=== PATIENT | female | born 1985 | race Caucasian/White ===

== ENCOUNTER → 2022-08-09 06:46 | Outpatient (CLI) | payer BC, SELFPAY | PROVIDERS: PCP Family Medicine; Visit Provider Family Medicine | DX: R10.9 Unspecified abdominal pain (principal) | CPT/HCPCS: 87086 ==

== ENCOUNTER → 2022-08-10 14:03 | Outpatient (CLI) | payer BC, SELFPAY | LOC: LAB 14:03 | PROVIDERS: PCP Family Medicine; Visit Provider Obstetrics & Gynecology | DX: Z32.01 Encounter for pregnancy test, result positive (principal) | CPT/HCPCS: 36415; 84702 ==

== ENCOUNTER → 2022-08-12 15:27 | Outpatient (CLI) | payer BC, SELFPAY ==
[2022-08-14 10:26] LABS: Progesterone 8.3 ng/mL (.)
== END ==
LOC: LAB 15:27
PROVIDERS: PCP Family Medicine; Visit Provider Obstetrics & Gynecology
DX: O20.9 Hemorrhage in early pregnancy, unspecified (principal)
CPT/HCPCS: 36415; 84144; 86900; 86901

== ENCOUNTER → 2022-08-24 09:21 | Outpatient (CLI) | payer BC, SELFPAY ==
[2022-08-24 10:03] LABS: Basophils # 0.1 K/mm3 (0-0.2); Basophils % 0.5 % (0.1-2.0); Eosinophils % 0.3 % (0.1-12.0); Hematocrit 40.8 % (37.0-47.0); Hemoglobin 13.6 g/dL (12.2-16.2); Lymphocytes # 1.3 K/mm3 (0.7-4.5); Lymphocytes % 14.2 % (10-50); Mean Corpuscular HGB Conc 33.3 g/dL (31.8-35.4); Mean Corpuscular Hemoglobin 30.4 pg (27.0-31.2); Mean Corpuscular Volume 91.4 fl (81-99); Monocytes # 0.3 K/mm3 (0.1-1.0); Monocytes % 3.9 % (1.7-9.3); Neutrophils # 7.1 K/mm3 (1.8-7.8); Platelet Count 263 K/mm3 (142-424); Red Blood Count 4.47 M/mm3 (4.20-5.40); Red Cell Distribution Width 13.3 % (11.5-17.5); White Blood Count 8.8 K/mm3 (4.8-10.8)
[2022-08-24 20:21] LABS: Amphetamine/Metha Screen,Urine Negative ng/ml (<1000); Barbiturates Screen,Urine Negative ng/ml (<200); Benzodiazepines Screen,Urine Negative ng/ml (<200); Cannabinoid Screen,Urine Negative ng/ml (<50); Cocaine Screen,Urine Negative ng/ml (<300); Methadone Screen,Urine Negative ng/ml (<300); Opiate Screen,Urine Negative ng/ml (<300); Phencyclidine Screen,Urine Negative ng/ml (<25)
[2022-08-25 08:18] LABS: Rubella Antibodies, IgG 1.78 index (Immune >0.99)
[2022-08-25 09:14] LABS: HIV Screen 4th Generation wRfx Non Reactive (Non Reactive)
[2022-08-25 10:41] LABS: Progesterone 10.6 ng/mL (.); Rapid Plasma Reagin Ab Titer Non Reactive (NonRea<1:1)
[2022-08-27 03:37] LABS: Neisseria gonorrhoeae, NAA Negative (Negative)
[2022-08-29 16:31] LABS: Hepatitis B Surface Antigen NEGATIVE; Hepatitis C Antibody NON REACTIVE
== END ==
LOC: LAB 09:21
PROVIDERS: PCP Family Medicine; Visit Provider Obstetrics & Gynecology
DX: Z34.90 Encounter for supervision of normal pregnancy, unspecified, unspecified trimester (principal)
CPT/HCPCS: 36415; 80305; 84144; 85025; 86593; 86703; 86762; 87086; 87088; 87186; 87340; 87380; 87491; 87591; G0432

== ENCOUNTER 2022-08-26 17:49 | Emergency (ER) | payer BC, SELFPAY ==
[2022-08-26 17:51] VITALS: BP 163/91; PULSE 66; RESP 18; TEMP 36.8; O2SAT 100; BMI 40.6
--- NOTE | 2022-08-26 18:09 | US_ITS ---
PROCEDURE INFORMATION: Exam: US , Transvaginal Exam date and time: 08/26/2022 7:08 PM Age: 37 years old Clinical indication: Lmp or gestational age (in weeks): 9w5d; Antepartum complications; ; Patient HX: Started bleeding today; Additional info: Vaginal bleeding, TECHNIQUE: Imaging protocol: Real-time transvaginal obstetrical ultrasound of the maternal pelvis with image documentation. Transvaginal imaging was used for better evaluation of the fetus, adnexa, and/or cervix. COMPARISON: No relevant prior studies available. FINDINGS: Gestation: Single intrauterine gestation. Yolk sac is visualized. heart rate: Heart rate of 158 bpm. Placenta: Crescentic subchorionic hypoechoic collection which is not measured. BIOMETRY: Gestational age (AUA): Gestational age of 9 weeks and 5 days. Home[place]-Lyndora-Rump length (CRL): Home[place]-Lyndora-rump length of 27.9 mm. MATERNAL: Uterus: Rounded isoechoic uterine lesion measuring 2.6 x 2.8 x 1.9 cm with vascular flow. Right ovary/adnexa: Right ovary is normal. Left ovary/adnexa: Left ovary is normal. IMPRESSION: 1. Single viable intrauterine gestation. 2. Probable small subchorionic hemorrhage. 3. Probable fibroid uterus.
[2022-08-26 18:30] LABS: Microscopic, Urine URINE MICROSCOPIC (MICROSCOPIC)
--- NOTE | 2022-08-26 18:30 | PC.NURSE ---
RADIOLOGY NOTIFIED OF US ORDER
[2022-08-26 18:33] LABS: Appearance,Urine SL CLOUDY (Clear); Bilirubin,Urine Negative (Negative); Blood, Urine 3+ (Negative); Color,Urine YELLOW (Yellow); Glucose,Urine (UA) Negative (Negative); Ketones,Urine Negative (Negative); Leukocyte Esterase,Urine Negative (Negative); Nitrate,Urine Negative (Negative); Protein,Urine 1+ (Negative)
[2022-08-26 18:49] LABS: Basophils # 0.1 K/mm3 (0-0.2); Basophils % 0.8 % (0.1-2.0); Eosinophils # 0.1 K/mm3 (0.0-0.4); Eosinophils % 0.5 % (0.1-12.0); Hematocrit 37.8 % (37.0-47.0); Hemoglobin 13.3 g/dL (12.2-16.2); Lymphocytes # 1.9 K/mm3 (0.7-4.5); Lymphocytes % 18.7 % (10-50); Mean Corpuscular HGB Conc 35.1 g/dL (31.8-35.4); Mean Corpuscular Hemoglobin 31.4 pg (27.0-31.2); Mean Corpuscular Volume 89.6 fl (81-99); Mean Platelet Volume 8.8 fl (7.4-10.4); Monocytes # 0.5 K/mm3 (0.1-1.0); Monocytes % 4.5 % (1.7-9.3); Neutrophils # 7.6 K/mm3 (1.8-7.8); Neutrophils % 75.6 % (37.0-80.0); Platelet Count 260 K/mm3 (142-424); Red Blood Count 4.22 M/mm3 (4.20-5.40); Red Cell Distribution Width 13.2 % (11.5-17.5)
[2022-08-26 18:53] LABS: RBC,Urine 20-50 #/hpf (0-3); WBC,Urine Occasional #/hpf (0-3)
--- NOTE | 2022-08-26 19:03 | PC.NURSE ---
PT TO US AT THIS TIME
--- NOTE | 2022-08-26 19:44 | HMH.EDGENADL ---
Discharge Plan Disposition Patient Disposition: Home, Self-Care Condition: Good Prescriptions Prescriptions: New promethazine 25 mg tablet 25 mg PO Q6H PRN (Reason: nausea) Qty: 10 0RF No Action ondansetron 4 mg tablet,disintegrating 4 mg PO Q8H PRN (Reason: nausea and vomiting) Qty: 60 2RF nitrofurantoin monohyd/m-cryst [Macrobid] 100 mg capsule 100 mg PO BID 7 Days Qty: 14 0RF Rx Instructions: must administer with a meal/food Referrals Follow up/Referrals: Randy Harrison MD [Primary Care Provider] - See instructions Activity Restrictions/Add. Instructions Additional Instructions/Restrictions: Restart vaginal progesterone as before. Take Phenergan as needed for nausea. Rest and avoid physical activity for 2 days. No sexual intercourse for 2 days. Follow-up with Dr. Garcia in her office on Tuesday or Tuesday next week, call to schedule appointment. Call Dr. Garcia if bleeding returns or if any other symptoms of concern. Clinical Impressions Clinical Impression: Threatened miscarriage Instructions Patient Instructions: DI for Threatened Discharge ED Provider: Barney Lagunas General Adult HPI General Chief complaint: Vaginal Bleeding Stated complaint: 11 weeks , bleeding Time Seen by Provider: 08/26/22 19:38 Mode of Arrival: Ambulatory Limitations: No Limitations Description of Symptoms (Recalled from ER Triage Doc. 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 REPORTS SHE WAS ON THE PHONE AND FELT A GUSH OF BRIGHT RED BLOOD WITH CLOTS. REPORTS LARGE AMOUNT, LESS AT THIS TIME. DENIES ANY PAIN. LMP 06/12/2022, ABOUT 10-11 WEEKS GESTATION History of Present Illness HPI narrative: Patient is about 10 weeks gestation, 2, para 1, last normal menstrual period of June 12, 2022, who no presents with vaginal bleeding. She says that 30 minutes prior to arrival she felt a gush and bled enough to soak her underwear in her hands and passed some clots. Now she just has a small amount of brown blood when she wipes. No associated pain. She had some spotting on August 12 and saw her TIN STACKER, Dr. Garcia, and had an office visit with an ultrasound. She also had a follow-up TIN STACKER visit on 08/24/2022 and had another ultrasound. She called the TIN STACKER office today when she began bleeding and was advised to come to the emergency department. The patient's blood type is O+. Related Data Previous Rx's Medication Instructions Recorded ondansetron 4 mg disintegrating 4 mg PO Q8H PRN nausea and 08/09/22 tablet vomiting #60 tabs nitrofurantoin 100 mg PO BID 7 days #14 caps 08/25/22 monohydrate/macrocrystals 100 mg capsule (Macrobid) promethazine 25 mg tablet 25 mg PO Q6H PRN nausea #10 tabs 08/26/22 Allergies Allergy/AdvReac Type Severity Reaction Status Date / Time No Known Allergies [facility] Disclaimer: The information contained in this section may have been updated after the patient was seen, as this information can be updated by other users. Medical History Advanced maternal age in multigravida Asthma Asthma Asthma affecting , antepartum Maternal obesity affecting , antepartum Vaginal bleeding affecting early Surgical History H/O bilateral breast reduction surgery Family History Father Cancer Mother Diabetes Grandmother Stroke Social History (Updated 08/26/22 @ 19:06 by Alexandrea Catalan RN) Smoking Status: Current every day smoker alcohol intake: never substance use type: denies use current occupational status: employed Travel in the last 8 weeks: None household members: spouse and children housing: house ROS Obtained: Yes Systems reviewed as appropriate & no additional complaints exce
--- NOTE | 2022-08-26 19:48 | PC.NURSE ---
paged Dr. Ramirez at this time
--- NOTE | 2022-08-26 19:49 | PC.NURSE ---
ANDRES DE LEON speaking with Dr. Ramirez at this time
[2022-08-26 20:03] VITALS: BP 127/69; PULSE 76; RESP 17; TEMP 36.8; O2SAT 97
== END 2022-08-26 20:06 | disposition home or self-care (01) ==
PROVIDERS: Emergency Provider Emergency Medicine; PCP Family Medicine
DX: O20.0 Threatened abortion
CPT/HCPCS: 76817; 81001; 84702; 85025; 99285

== ENCOUNTER → 2022-09-06 23:50 | Outpatient (CLI) | payer BC, SELFPAY | LOC: LAB.DROPOF 23:51 | PROVIDERS: PCP Family Medicine; Visit Provider Obstetrics & Gynecology | DX: O20.9 Hemorrhage in early pregnancy, unspecified (principal) | CPT/HCPCS: 87086; 87088; 87186 ==

== ENCOUNTER → 2022-09-08 08:04 | Outpatient (CLI) | payer BC, SELFPAY ==
--- NOTE | 2022-09-08 08:13 | US_ITS ---
FINAL REPORT TECHNIQUE: Sonographic images of the pelvis were obtained. CLINICAL HISTORY: Bleeding in Early COMPARISON: 08/26/2022 FINDINGS: The uterus is anteverted and anteflexed. The cervix is closed. Nabothian cysts are noted. There is a single living intrauterine gestation. [place]-rump length is 46.8 mm consistent with 11 weeks 4 days. Heart rate is 158 beats per minute. There is crescentic hypoechogenicity adjacent to the gestational sac. This is consistent with a small subchorionic hemorrhage. A uterine fibroid is noted. Left ovary measures 2.6 x 3.1 x 2.5 cm and is normal. Right ovary measures 3.0 x 3.7 x 2.6 cm which is normal. IMPRESSION: Single, living, intrauterine gestation. Small subchorionic hemorrhage. Reviewed, Interpreted and Dictated by Shannan Ivan MD Transcribed by Pily Lees Authenticated and [facility]
== END ==
LOC: RAD 08:04
PROVIDERS: PCP Family Medicine; Visit Provider Obstetrics & Gynecology
DX: O20.9 Hemorrhage in early pregnancy, unspecified (principal)
CPT/HCPCS: 76801

== ENCOUNTER → 2022-11-12 12:48 | Outpatient (CLI) | payer BC, SELFPAY ==
--- NOTE | 2022-11-12 12:49 | US_ITS ---
FINAL REPORT CLINICAL HISTORY: 20 week anatomy scan use anatomy template FINDINGS: There is a single live intrauterine gestation. Presentation is cephalic. The cervix is closed and measures 3.6. Placenta is anterior grade 1. movement is noted. Heart rate is detected at 140 beats per minute. MEASUREMENTS: ULTRASOUND AGE: 20 weeks 5 days. GESTATION AGE: 21 weeks 0 days. ESTIMATED WEIGHT: 371 g GROWTH PERCENTILE: 29 % BPD: 4.92 cm corresponding to 21 weeks 0 days. OFD: 6.11 cm corresponding to 20 weeks 5 days. HC: 17.43 cm corresponding to 20 weeks 0 days. AC: 16.29 cm corresponding to 21 weeks 3 days. FL: 3.23 cm corresponding to 20 weeks 1 day. CEREBELLUM: 2.01 cm corresponding to 20 weeks 4 days. HUMERUS: 3.35 cm corresponding to 21 weeks 3 days. HC/AC: 1.07 CI: 81% FL/BPD: 66% FL/AC: 20% IMPRESSION: Single living IUP with an ultrasound age of 20 weeks 5 days. Reviewed, Interpreted and Dictated by Conner Pryor MD Transcribed by Melanie Billy Authenticated and [facility]
== END ==
LOC: RAD 12:49
PROVIDERS: PCP Family Medicine; Visit Provider Obstetrics & Gynecology
DX: Z34.90 Encounter for supervision of normal pregnancy, unspecified, unspecified trimester (principal); Z3A.20 20 weeks gestation of pregnancy
CPT/HCPCS: 76811

== ENCOUNTER → 2022-11-12 14:06 | Outpatient (CLI) | payer BC, SELFPAY ==
[2022-11-12 15:00] LABS: Basophils % 0.2 % (0.1-2.0); Eosinophils # 0.1 K/mm3 (0.0-0.4); Eosinophils % 0.6 % (0.1-12.0); Hematocrit 35.2 % (37.0-47.0); Hemoglobin 11.7 g/dL (12.2-16.2); Lymphocytes # 1.2 K/mm3 (0.7-4.5); Lymphocytes % 16.1 % (10-50); Mean Corpuscular HGB Conc 33.3 g/dL (31.8-35.4); Mean Corpuscular Hemoglobin 31.1 pg (27.0-31.2); Mean Corpuscular Volume 93.5 fl (81-99); Mean Platelet Volume 9.2 fl (7.4-10.4); Monocytes # 0.3 K/mm3 (0.1-1.0); Monocytes % 3.6 % (1.7-9.3); Neutrophils # 6.1 K/mm3 (1.8-7.8); Neutrophils % 79.5 % (37.0-80.0); Platelet Count 206 K/mm3 (142-424); Red Blood Count 3.77 M/mm3 (4.20-5.40); Red Cell Distribution Width 14.3 % (11.5-17.5); White Blood Count 7.7 K/mm3 (4.8-10.8)
[2022-11-12 15:29] LABS: Potassium 3.9 mmoL/L (3.5-5.1)
== END ==
PROVIDERS: PCP Family Medicine; Visit Provider Obstetrics & Gynecology
DX: R25.2 Cramp and spasm (principal); Z34.90 Encounter for supervision of normal pregnancy, unspecified, unspecified trimester
CPT/HCPCS: 36415; 84132; 85025

== ENCOUNTER 2022-11-24 01:06 | Observation (INO) | payer BC, SELFPAY ==
[2022-11-23 23:09] VITALS: BP 136/73; PULSE 72; RESP 18; TEMP 36.8; O2SAT 98; BMI 41.0
[2022-11-23 23:15] VITALS: BP 136/73; PULSE 72; RESP 18; TEMP 36.8; O2SAT 98
[2022-11-23 23:24] VITALS: BMI 40.8
[2022-11-23 23:30] LABS: POC Glucose,Bedside 511 (70-110)
[2022-11-23 23:32] LABS: Microscopic, Urine URINE MICROSCOPIC (MICROSCOPIC)
[2022-11-23 23:43] LABS: Appearance,Urine CLEAR (Clear); Bilirubin,Urine Negative (Negative); Blood, Urine Negative (Negative); Color,Urine YELLOW (Yellow); Glucose,Urine (UA) 3+ (Negative); Ketones,Urine TRACE (Negative); Leukocyte Esterase,Urine Negative (Negative); Nitrate,Urine Negative (Negative); Protein,Urine Negative (Negative); Specific Gravity, Urine <= 1.005 (1.005-1.030); Urobilinogen,Urine 0.2 EU/dl (0.2)
[2022-11-23 23:55] LABS: Amphetamine/Metha Screen,Urine Negative ng/ml (<1000)
[2022-11-23 23:56] LABS: Glucose,Random 454 mg/dL (74-100)
[2022-11-23 23:56] LABS: Barbiturates Screen,Urine Negative ng/ml (<200); Benzodiazepines Screen,Urine Negative ng/ml (<200)
[2022-11-23 23:57] LABS: Cannabinoid Screen,Urine Negative ng/ml (<50)
[2022-11-23 23:58] LABS: Cocaine Screen,Urine Negative ng/ml (<300); Methadone Screen,Urine Negative ng/ml (<300)
[2022-11-23 23:59] LABS: Opiate Screen,Urine Negative ng/ml (<300)
[2022-11-24] LABS: Phencyclidine Screen,Urine Negative ng/ml (<25)
[2022-11-24 00:10] LABS: Squamous Epithelial Cell,Urine Occasional #/hpf (0-5); WBC,Urine Occasional #/hpf (0-3)
[2022-11-24 00:30] LABS: Chloride 95 mmol/L (98-107); Potassium 3.7 mmoL/L (3.5-5.1); Sodium 126 mmol/L (136-145)
[2022-11-24 00:32] LABS: ABG Base Excess -3.9 mmol/L (-2.4-2.3); ABG HCO3 19.8 mmhg (22.0-26.0); ABG Oxygen Saturation 98 % (90-100); ABG PCO2 27.9 mmhg (35.0-45.0); ABG PH 7.47 mmol/L (7.35-7.45); ABG PO2 99.6 mmhg (80-100); ABG TCO2 20.7 mmhg (23-27)
[2022-11-24 00:33] LABS: Alanine Aminotransferase 27 U/L (12-78); Albumin Level 3.3 g/dl (3.5-5.0); Albumin/Globulin Ratio 1.2 (1.1-1.8); Alkaline Phosphatase 74 U/L (38-126); Anion Gap 14.7 mEq/L (5-15); Aspartate Amino Transferase 37 U/L (14-36); Bilirubin,Total 0.4 mg/dl (0.2-1.3); Blood Urea Nitrogen 10 mg/dl (7-17); Carbon Dioxide 20 mmol/L (22.0-30.0); Creatinine Clearance Estimated 174 mL/min (50-200); Estimated Glomerular Filt Rate 94 ml/min (>60); GFR (African American) 113 ML/MIN (>60); Globulin 2.8 g/dL (1.3-3.2); Total Protein,Serum 6.1 g/dl (6.3-8.2)
[2022-11-24 00:34] LABS: Calcium 9.1 mg/dl (8.4-10.2)
[2022-11-24 00:34] LABS: Oxygen ROOM AIR %
[2022-11-24 00:35] LABS: Glucose 459 mg/dl (74-100)
[2022-11-24 00:35] LABS: Allen's Test Acceptable; Source Right Radial
[2022-11-24 02:43] LABS: POC Glucose,Bedside 325 (70-110)
[2022-11-24 04:25] VITALS: BP 116/60; PULSE 67; RESP 17; TEMP 36.8; O2SAT 100
[2022-11-24 08:00] VITALS: BP 109/74; PULSE 75; RESP 18; TEMP 36.7; O2SAT 99
[2022-11-24 08:47] LABS: POC Glucose,Bedside 224 (70-110)
--- NOTE | 2022-11-24 09:47 | ECG_ITS ---
APPROVED REPORT Exam: Resting ECG HR:60 bpm ECG Measurements Heart Rate [address] 149 P 57 QRSd 101 QRS 40 QT 413 T 35 QTc 413 Conclusion SINUS RHYTHM LOW QRS VOLTAGE IN PRECORDIAL LEADS [QRS DEFLECTION < 1.0 mV IN CHEST LEADS] BORDERLINE ECG UNCONFIRMED REPORT Electronically signed by : Laurent Maynard MD 11/25/2022 21:41:37
--- NOTE | 2022-11-24 10:03 | EXP.HPDC ---
General Admission date:: 11/24/22 Discharge date: 11/24/22 *Admission Date: 11/23/22 *Chief complaint: Blurred vision and fatigue *History of present illness: Mrs Rita Lizama is a 37 yo at 22w4d who presented to [facility] with complaint of blurry vision and feeling tired and a little weak. She admits she started noticing some blurry vision a few days ago while driving. However, last night, 11/23/22, she noticed she had blurry vision while watching a baseball came on TV. Her checked her BS and it was high. Her is a diabetic. So she thought she should come in. On admission her BS was 511. Remainder of labs were negative for DKA. [facility] Disclaimer: The information contained in this section may have been updated after the patient was seen, as this information can be updated by other users. Medical History Advanced maternal age in multigravida Asthma Asthma Asthma affecting , antepartum Elevated blood sugar level Heartburn during Leg cramps in Maternal obesity affecting , antepartum with 22 completed weeks gestation Tobacco use affecting , antepartum Type 2 diabetes mellitus affecting , antepartum Vaginal bleeding affecting early Surgical History H/O bilateral breast reduction surgery Family History Father Cancer Mother Diabetes Grandmother Stroke Social History Smoking Status: Current every day smoker alcohol intake: never substance use type: denies use current occupational status: employed Travel in the last 8 weeks: None household members: spouse and children housing: house Review of Systems Review of Systems Review of systems:: pertinent systems reviewed and negative unless documented below Constitutional Constitutional: Reports fatigue and Reports lethargy Eyes Eyes: Reports blurry vision Endocrine Endocrine: Reports fatigue Exam Data for Last 24 hours Vital signs and Labs for Last 24 Hours: Temp Pulse Resp BP Pulse Ox 98.2 F 67 17 116/60 100 11/24/22 04:25 11/24/22 04:25 11/24/22 04:25 11/24/22 04:25 11/24/22 04:25 Laboratory Results - last 24 hr 11/23/22 23:18: Urine Color Yellow, Urine Appearance Clear, Urine pH 6.0, Ur Specific [place] <= 1.005, Urine Protein Negative, Urine Glucose (UA) 3+, Urine Ketones Trace, Urine Blood Negative, Urine Nitrate Negative, Urine Bilirubin Negative, Urine Urobilinogen 0.2, Ur Leukocyte Esterase Negative, Urine RBC 3-5, Urine WBC Occasional, Ur Squamous Epith Cells Occasional, Urine Bacteria None 11/23/22 23:18: Urine Opiates Screen Negative, Urine Methadone Screen Negative, Ur Barbituates Screen Negative, Ur Phencyclidine Scrn Negative, Ur Amphetamines Screen Negative, U Benzodiazepines Scrn Negative, Urine Cocaine Screen Negative, U Marijuana (THC) Screen Negative 11/23/22 23:23: POC Glucose 511 H* 11/23/22 23:35: Random Glucose 454 H* 11/23/22 23:35: Sodium 126 L, Potassium 3.7, Chloride 95 L, Carbon Dioxide 20 L, Anion Gap 14.7, BUN 10, Creatinine 0.70, Estimated Creat Clear 174, Estimated GFR 94, Est GFR ( Amer) 113, Glucose 459 H*, Calcium 9.1, Total Bilirubin 0.4, AST 37 H, ALT 27, Alkaline Phosphatase 74, Total Protein 6.1 L, Albumin 3.3 L, Globulin 2.8, Albumin/Globulin Ratio 1.2 11/24/22 00:17: Specimen Source Right radial, O2 % Room air, ABG pH 7.47 H, ABG pCO2 27.9 L, ABG pO2 99.6, ABG HCO3 19.8 L, ABG Total CO2 20.7 L, ABG O2 Saturation 98, ABG Base Excess -3.9 L, Prakash Test Acceptable 11/24/22 02:30: POC Glucose 325 H* 11/24/22 05:47: POC Glucose 224 H I & O for Last 24 hours: Intake & Output 11/21/22 11/22/22 11/23/22 11/24/22 23:59 23:59 23:59 23:59 Output Total 900 / 900 Balance -900 / -900 Weight 223 lb
== END 2022-11-24 10:35 | disposition home or self-care (01) ==
LOC: OBOUT 01:10 → OB 01:10
PROVIDERS: Internal Medicine Cardiovascular Disease; Nurse Practitioner Family; Admitting Provider Nurse Practitioner Obstetrics & Gynecology; PCP Family Medicine; Referring Provider Obstetrics & Gynecology; Visit Provider Obstetrics & Gynecology
DX: O24.112 Pre-existing type 2 diabetes mellitus, in pregnancy, second trimester (principal); R53.83 Other fatigue; O99.212 Obesity complicating pregnancy, second trimester; O99.512 Diseases of the respiratory system complicating pregnancy, second trimester; O99.332 Smoking (tobacco) complicating pregnancy, second trimester; F17.210 Nicotine dependence, cigarettes, uncomplicated; J45.909 Unspecified asthma, uncomplicated; O09.522 Supervision of elderly multigravida, second trimester
CPT/HCPCS: 36415; 80053; 80305; 81001; 82803; 82947; 82962; 93005; G0378

== ENCOUNTER → 2023-02-25 23:33 | Outpatient (CLI) | payer BC, SELFPAY | PROVIDERS: PCP Family Medicine; Visit Provider Obstetrics & Gynecology | DX: Z34.93 Encounter for supervision of normal pregnancy, unspecified, third trimester (principal); Z3A.35 35 weeks gestation of pregnancy | CPT/HCPCS: 86403 ==

== ENCOUNTER → 2023-03-01 10:07 | Outpatient (CLI) | payer BC, SELFPAY ==
[2023-03-01 11:21] LABS: Chloride 107 mmol/L (98-107); Sodium 136 mmol/L (136-145)
[2023-03-01 11:22] LABS: Potassium 3.8 mmoL/L (3.5-5.1)
[2023-03-01 11:24] LABS: Alanine Aminotransferase 16 U/L (12-78); Albumin Level 3.2 g/dl (3.5-5.0); Albumin/Globulin Ratio 1.1 (1.1-1.8); Alkaline Phosphatase 165 U/L (38-126); Anion Gap 12.8 mEq/L (5-15); Aspartate Amino Transferase 24 U/L (14-36); Bilirubin,Total 0.5 mg/dl (0.2-1.3); Blood Urea Nitrogen 9 mg/dl (7-17); Calcium 9.4 mg/dl (8.4-10.2); Carbon Dioxide 20 mmol/L (22.0-30.0); Estimated Glomerular Filt Rate 94 ml/min (>60); GFR (African American) 113 ML/MIN (>60); Globulin 2.9 g/dL (1.3-3.2); Glucose 78 mg/dl (74-100); Total Protein,Serum 6.1 g/dl (6.3-8.2)
[2023-03-06 11:12] LABS: Bile Acids 3.1
== END ==
PROVIDERS: PCP Family Medicine; Visit Provider Obstetrics & Gynecology
DX: Z34.93 Encounter for supervision of normal pregnancy, unspecified, third trimester (principal); Z3A.36 36 weeks gestation of pregnancy; K83.1 Obstruction of bile duct
CPT/HCPCS: 36415; 80053; 82239; 86850

== ENCOUNTER 2023-03-15 15:44 | Inpatient (IN) | payer BC, SELFPAY ==
[2023-03-15 15:53] VITALS: BMI 40.8
[2023-03-15 16:39] VITALS: BMI 40.8
[2023-03-15 16:39] LABS: Basophils % 0.1 % (0.1-2.0); Eosinophils % 0.4 % (0.1-12.0); Hematocrit 33.2 % (37.0-47.0); Hemoglobin 11.3 g/dL (12.2-16.2); Lymphocytes # 1.2 K/mm3 (0.7-4.5); Lymphocytes % 12.1 % (10-50); Mean Corpuscular HGB Conc 34.2 g/dL (31.8-35.4); Mean Corpuscular Volume 90.7 fl (81-99); Mean Platelet Volume 9.5 fl (7.4-10.4); Monocytes # 0.5 K/mm3 (0.1-1.0); Monocytes % 4.9 % (1.7-9.3); Neutrophils % 82.5 % (37.0-80.0); Platelet Count 245 K/mm3 (142-424); Red Blood Count 3.66 M/mm3 (4.20-5.40); White Blood Count 9.7 K/mm3 (4.8-10.8)
[2023-03-15 16:40] LABS: Chloride 109 mmol/L (98-107); Potassium 3.8 mmoL/L (3.5-5.1); Sodium 137 mmol/L (136-145)
[2023-03-15 16:43] LABS: Anion Gap 13.8 mEq/L (5-15); Blood Urea Nitrogen 11 mg/dl (7-17); Calcium 9.9 mg/dl (8.4-10.2); Carbon Dioxide 18 mmol/L (22.0-30.0); Creatinine Clearance Estimated 152 mL/min (50-200); Estimated Glomerular Filt Rate 80 ml/min (>60); GFR (African American) 97 ML/MIN (>60); Glucose 80 mg/dl (74-100)
[2023-03-15 17:09] LABS: Microscopic, Urine URINE MICROSCOPIC (MICROSCOPIC)
[2023-03-15 17:11] LABS: Appearance,Urine CLEAR (Clear); Bilirubin,Urine Negative (Negative); Blood, Urine 2+ (Negative); Color,Urine YELLOW (Yellow); Glucose,Urine (UA) Negative (Negative); Ketones,Urine Negative (Negative); Leukocyte Esterase,Urine Negative (Negative); Nitrate,Urine Negative (Negative); Protein,Urine 2+ (Negative); Specific Gravity, Urine >= 1.030 (1.005-1.030)
[2023-03-15 17:23] LABS: Amphetamine/Metha Screen,Urine Negative ng/ml (<1000); Benzodiazepines Screen,Urine Negative ng/ml (<200)
[2023-03-15 17:24] LABS: Barbiturates Screen,Urine Negative ng/ml (<200)
[2023-03-15 17:25] LABS: Cannabinoid Screen,Urine Negative ng/ml (<50); Methadone Screen,Urine Negative ng/ml (<300)
[2023-03-15 17:26] LABS: Cocaine Screen,Urine Negative ng/ml (<300)
[2023-03-15 17:27] LABS: Opiate Screen,Urine Negative ng/ml (<300); Phencyclidine Screen,Urine Negative ng/ml (<25)
[2023-03-15 18:18] LABS: Bacteria,Urine Trace /lpf; Calcium Oxalate Crystals,Urine 1+ /lpf; Squamous Epithelial Cell,Urine Occasional #/hpf (0-5)
[2023-03-15 19:01] VITALS: BP 159/77; PULSE 88; RESP 18; TEMP 36.5; O2SAT 100
[2023-03-15 20:43] LABS: POC Glucose,Bedside 181 (70-110)
[2023-03-16] VITALS (7 sets, daily range): BP systolic 131–149; BP diastolic 58–95; PULSE 66–81; RESP 16–18; TEMP 36.4–36.9; O2SAT 98–100
--- NOTE | 2023-03-16 07:09 | P.CONPHA_ITS ---
Pharmacy Intervention Comments: MEDICATION RECONCILIATION COMPLETED ON PATIENT USING EXTERNAL FILL HISTORY FROM PHARMACY AND LIST FROM AUTOMOTIVE ENGINEERING TECHNICIAN OFFICE. -JESUS GLORIAD
--- NOTE | 2023-03-16 07:09 | HMH.PHAINT1 ---
Pharmacy Intervention Comments: MEDICATION RECONCILIATION COMPLETED ON PATIENT USING EXTERNAL FILL HISTORY FROM PHARMACY AND LIST FROM OPTICAL ELEMENT COATER OFFICE. -JESUS GLORIAD
--- NOTE | 2023-03-16 08:20 | EXP.OB.APHP ---
OB - H&P: HPI Antepartum History of Present Illness Chief complaint: Scheduled induction of labor History of present illness: Mrs Rita Lizama is a 37 yo at 38w4d who presents to [facility] Labor and Delivery for scheduled induction of labor secondary to suboptimally controlled DM type 2 vs GDM on insulin and metformin. She has had good care. Baby is active. History of Present Criteria for establishing EDC:: based on 1st trimester US only care: good care Ultrasounds: normal mid trimester US Obstetrical complications: other (GDM vs pregestational DM) Labs Blood type: O (+) positive Rubella: immune RPR/VDRL: nonreactive GBS status: negative HBsAG: negative [facility] Disclaimer: The information contained in this section may have been updated after the patient was seen, as this information can be updated by other users. Medical History (Updated 03/16/23 @ 08:31 by Rachelle Garcia DO) 38 weeks gestation of Advanced maternal age in multigravida Asthma Asthma affecting , antepartum Elevated blood sugar level Heartburn during Leg cramps in Maternal obesity affecting , antepartum Threatened miscarriage Tobacco use affecting , antepartum Type 2 diabetes mellitus affecting , antepartum Vaginal bleeding affecting early Surgical History H/O bilateral breast reduction surgery Family History Father Cancer Mother Diabetes Grandmother Stroke Social History Smoking Status: Current every day smoker alcohol intake: never substance use type: denies use current occupational status: employed Travel in the last 8 weeks: None household members: spouse and children housing: house Review of Systems Review of Systems Review of systems:: pertinent systems reviewed and negative unless documented below *Genitourinary Comments: + pelvic pressure *Musculoskeletal Comments: + hip pain Integumentary/Breasts Skin/Breast: Reports pruritus (itching on hands, between fingers, tops of feet, chest, abdomen) Meds Home Medications and Allergies Home Medications Medication Instructions Recorded Confirmed Type pediatric multivitamin no.49 1 tab PO DAILY Supplement 09/06/22 03/16/23 History (Flintstones Gummies chewable tablet) aspirin 81 mg tablet,delayed 81 mg PO DAILY Heart Health 10/01/22 03/16/23 History release (Adult Low Dose Aspirin) famotidine 20 mg tablet 20 mg PO BID Acid Reflux 11/24/22 03/16/23 History metformin 500 mg tablet,extended 500 mg PO BIDWMEAL Diabetes 11/29/22 03/16/23 History release 24 hr insulin aspar prt-insulin aspart 42 unit SQ TID Diabetes 12/27/22 03/16/23 History 100 unit/mL (70-30) subcutaneous soln (Novolog Mix 70-30 U-100 Insuln) insulin detemir U-100 100 unit/mL 66 unit SQ HS Diabetes 12/27/22 03/16/23 History subcutaneous solution (Levemir U-100 Insulin) hydroxyzine pamoate 50 mg capsule 50 mg PO TIDP PRN itching 03/16/23 03/16/23 History (Vistaril) New Prescriptions to Start Prescriptions: Allergies Allergy/AdvReac Type Severity Reaction Status Date / Time No Known Allergies Allergy Verified 03/11/23 09:10 OB - H&P: Exam Physical Exam Vital signs: Temp Pulse Resp BP Pulse Ox O2 Del Method 97.6 F 70 18 136/95 H 99 Room Air 03/16/23 03:45 03/16/23 03:45 03/16/23 03:45 03/16/23 03:45 03/16/23 03:45 03/16/23 03:45 Constitutional no acute distress Routine HEENT Exam Head: Present normocephalic and atraumatic Eye: Absent conjunctivae pink ENT: Present mucous membranes moist Routine Neck Exam Present full ROM Routine Respiratory Exam Present CTA bilaterally and normal respiratory effort Routine Cardiovascular Exam Present RRR Routine Abdomi
[2023-03-16 09:19] LABS: POC Glucose,Bedside 112 (70-110)
--- NOTE | 2023-03-16 09:22 | P.PNANES_ITS ---
[facility] Disclaimer: The information contained in this section may have been updated after the patient was seen, as this information can be updated by other users. Medical History (Updated 03/16/23 @ 08:31 by Rachelle Garcia DO) 38 weeks gestation of Advanced maternal age in multigravida Asthma Asthma affecting , antepartum Elevated blood sugar level Heartburn during Leg cramps in Maternal obesity affecting , antepartum Threatened miscarriage Tobacco use affecting , antepartum Type 2 diabetes mellitus affecting , antepartum Vaginal bleeding affecting early Surgical History H/O bilateral breast reduction surgery Family History Father Cancer Mother Diabetes Grandmother Stroke Social History Smoking Status: Current every day smoker alcohol intake: never substance use type: denies use current occupational status: employed Travel in the last 8 weeks: None household members: spouse and children housing: house [facility] Anesthesia Checklist Patient Identification Patient Identification: Arm Band Structural Data Admitted From: Home Planned Operative Procedure/s: Labor Epidural Consent for Planned Operative Procedure(s) Verified: Yes Verified Documents: Surgical Consent and History and Physical NPO Status Verified Time NPO: 00:00 Additional verifications Anesthesia Reactions: No Airway Assessment Mallampati Score:: Class I C-Spine Mobility Assessed: Yes TMJ Mobility Assessed: Yes Dentition: Good Dentition Neurological Assessment Level of Consciousness: Awake and Alert Anesthesia Plan Anesthesia Risk discussed: Yes Anesthesia Plan: Verified ASA Class: II Anesthesia Type: Epidural
[2023-03-16 12:12] LABS: POC Glucose,Bedside 153 (70-110)
[2023-03-16 13:45] LABS: POC Glucose,Bedside 150 (70-110)
[2023-03-16 17:21] LABS: POC Glucose,Bedside 131 (70-110)
--- NOTE | 2023-03-16 17:40 | EXP.LABOR.NO ---
Labor Note Subjective: Date: 03/16/23 Time: 17:30 Comment:: Comfortable with epidural. Objective: NST:: Reactive Cervical Dilation:: 9-10 Effacement:: 100% Station: -1 Membranes: artificially ruptured Fetus: Monitoring?: Yes monitoring type:: Internal and External Assessment: Labor progressing?: No Cephalopelvic disproportion?: Yes Problems: (1) 38 weeks gestation of : Category: Medical Code(s): Z3A.38 - 38 weeks gestation of (2) Type 2 diabetes mellitus affecting , antepartum: Category: Medical Code(s): O24.119 - Pre-existing type 2 diabetes mellitus, in , unspecified trimester (3) Tobacco use affecting , antepartum: Category: Medical Code(s): O99.330 - Smoking (tobacco) complicating , unspecified trimester (4) Maternal obesity affecting , antepartum: Qualifiers: Obesity type affecting : other obesity due to excess calories Qualified Code(s): O99.210 - Obesity complicating , unspecified trimester; E66.09 - Other obesity due to excess calories Category: Medical Code(s): O99.210 - Obesity complicating , unspecified trimester (5) Advanced maternal age in multigravida: Qualifiers: Trimester: third trimester Qualified Code(s): O09.523 - Supervision of elderly multigravida, third trimester Category: Medical Code(s): O09.529 - Supervision of elderly multigravida, unspecified trimester (6) Asthma affecting , antepartum: Category: Medical Code(s): O99.519 - Diseases of the respiratory system complicating , unspecified trimester; J45.909 - Unspecified asthma, uncomplicated Plan: Plan for ?: Yes Additional information:: Rita progressed to complete, -1 station. tracing was category 2 all day with periods of minimal and moderate variability and variable and late decelerations. She pushed for almost 2 hours with no further descent of baby. Decision was made to proceed with primary for failure to progress and CPD. After pitocin was discontinued tracing was category 1. Discussed risks, benefits, alternatives, expectations and possible complications of surgery. Risks include but are not limited to bleeding; infection; damage to adjacent structures (possibly requiring further intervention and/or longer hospital stay); and VTE. All questions addressed and answered. Patient voiced understanding of risks and possible complications. Consent form signed.
--- NOTE | 2023-03-16 18:57 | EXP.OP.NOTE ---
Date of procedure: 03/16/23 Pre-op Diagnosis:: 1. IUP at 38w4d 2. DM type 2 in 3. Maternal obesity 4. Tobacco use in 5. Advanced Maternal Age 6. Asthma in 7. Failure to progress 8. CPD Post-op Diagnosis:: 1. IUP at 38w4d 2. DM type 2 in 3. Maternal obesity 4. Tobacco use in 5. Advanced Maternal Age 6. Asthma in 7. Failure to progress 8. CPD Procedure performed:: Primary Low Transverse Section Surgeon:: Rachelle Garcia DO Health Analytics Consultant(s):: Heraclio Barry MD TALCER:: Chai Gale Anesthesia: epidural Estimated blood loss (mL): 600 Clinical Note:: Mrs Rita Lizama is a 37 yo at 38w4d who presents to [facility] Labor and Delivery for scheduled induction of labor secondary to suboptimally controlled DM type 2 vs GDM on insulin and metformin. She has had good care. Baby is active. She underwent induction of labor with Cytotec followed by amniotomy and Pitocin. She progressed to complete, -1 station. tracing was category 2 all day with periods of minimal and moderate variability and variable and late decelerations. She pushed for almost 2 hours with no further descent of baby. Decision was made to proceed with primary for failure to progress and CPD. After pitocin was discontinued tracing was category 1. Discussed risks, benefits, alternatives, expectations and possible complications of surgery. Risks include but are not limited to bleeding; infection; damage to adjacent structures (possibly requiring further intervention and/or longer hospital stay); and VTE. All questions addressed and answered. Patient voiced understanding of risks and possible complications. Consent form signed. Operative findings:: 1. Live female baby, Yen Romero, weighing 7 lb 7 oz, APGARs 8, 9 2. Grossly normal appearing uterus, bilateral fallopian tubes and ovaries Operative note:: The risks, benefits and alternatives of the procedure were reviewed with the patient. Informed consent was obtained. Patient was taken to the operating room where epidural was bolused. The patient received 3 grams of Ancef preoperatively. Patient was placed in dorsal supine position with a leftward tilt. SCDs in place. Argueta catheter had been placed and was draining clear urine prior to the start of the procedure. heart tones were obtained. Vagina was prepped with Betadine swabs x 3. Patient was then prepped and draped in normal sterile fashion. Allis clamp test was performed to ensure adequate anesthesia. A Pfannenstiel skin incision was made 2 cm above pubic symphysis. This was carried through to underlying layer of fascia. Fascia was incised in midline, extended laterally with Aguilar scissors. Superior aspect of fascial incision was grasped with two Srinivasa clamps, elevated up, and rectus muscle dissected off bluntly and sharply with Aguilar scissors. Inferior aspect of fascial incision was grasped with two Srinivasa clamps, elevated up, and rectus muscle dissected off bluntly and sharply with Aguilar scissors. The rectus muscle was then in the midline and the peritoneum was entered bluntly with a digit. Peritoneal incision was then extended superiorly and inferiorly with good visualization of the bladder. Shai retractor was inserted. The lower uterine segment was incised in a transverse fashion. Head was delivered without difficulty. Umbilical cord noted to be over baby's shoulder. Remainder of body was delivered without difficulty. Mouth and nares were bulb suctioned. Spontaneous cry was noted. Delayed cord clamping was performed for 60 seconds. The umbilical cord was clamped and cut. The was handed to awaiting pediatric staff in stable condition. Dr. Carey was present. Apgars were 8(1 min), 9(5 min). Cord blood was obtained. Gentle traction on the umbilical cord and uterine fundal massage delivered the placenta. Placenta was intact. Placenta will be sent to pathology for review. Uterus
--- NOTE | 2023-03-16 19:09 | P.PNANES_ITS ---
[facility] Anesthesia Record Part I Anesthesia Record I Intake, IV Amount: 800 Hydration: Adequate Estimated blood loss (mL): 600 Urine output (mL): 100 Blood Products used (#): none Blood Pressure: 149/74 SaO2: 99 Pulse Rate: 81 Airway Patency: Patent Respiratory Rate: 16 Temperature: 98.1 F Patient is:: Drowsy and Stable Stable to PACU at:: 18:55
--- NOTE | 2023-03-16 19:41 | SUR.PHASEI ---
1720-125 ml light gerard colored urine emptied from f/c 172-detailed report called to Matt Nick RN. Pt transported via bed to OB unit per Elsy SMITH & Farhat SENIOR FIREWALL ENGINEER. Pt left in care of Mariela. , son and baby @ bs.
--- NOTE | 2023-03-16 19:43 | SUR.OPER ---
89-viable female born 1835- cord ph @ 7.3
[2023-03-16 21:29] LABS: POC Glucose,Bedside 171 (70-110)
[2023-03-17 02:26] LABS: POC Glucose,Bedside 187 (70-110)
[2023-03-17 04:10] VITALS: BP 115/57; PULSE 70; RESP 18; TEMP 36.8; O2SAT 98
[2023-03-17 06:19] LABS: Basophils % 0.1 % (0.1-2.0); Eosinophils # 0.1 K/mm3 (0.0-0.4); Eosinophils % 0.5 % (0.1-12.0); Hemoglobin 10.3 g/dL (12.2-16.2); Lymphocytes # 1.4 K/mm3 (0.7-4.5); Lymphocytes % 12.7 % (10-50); Mean Corpuscular HGB Conc 32.2 g/dL (31.8-35.4); Mean Corpuscular Hemoglobin 29.8 pg (27.0-31.2); Mean Corpuscular Volume 92.5 fl (81-99); Mean Platelet Volume 9.7 fl (7.4-10.4); Monocytes # 0.7 K/mm3 (0.1-1.0); Monocytes % 6.2 % (1.7-9.3); Neutrophils # 8.7 K/mm3 (1.8-7.8); Neutrophils % 80.5 % (37.0-80.0); Platelet Count 207 K/mm3 (142-424); Red Blood Count 3.46 M/mm3 (4.20-5.40); Red Cell Distribution Width 15.3 % (11.5-17.5); White Blood Count 10.9 K/mm3 (4.8-10.8)
[2023-03-17 06:26] LABS: POC Glucose,Bedside 120 (70-110)
[2023-03-17 08:00] VITALS: BP 121/69; PULSE 85; RESP 18; TEMP 36.8; O2SAT 99
--- NOTE | 2023-03-17 08:51 | EXP.ACUTE.PN ---
Subjective *Date: 03/17/23 *Time: 10:51 Interval history: POD # 1 s/p PLTCS Rita is feeling well this morning. Pain controlled but she admits she has not been out of bed yet. Argueta catheter in place draining clear urine. Tolerating regular diet. She is formula feeding. Lochia is appropriate. Denies fever/chills, chest pain and shortness of breath. Denies headaches, dizziness/lightheadedness. No swelling. Medical Exam Vital signs and Labs for Last 24 Hours: Vital Signs Temp Pulse Pulse Resp BP BP Pulse Ox 03/17/23 04:10 98.3 F 70 18 115/57 L 98 03/16/23 20:00 97.9 F 67 18 131/58 L 100 03/16/23 19:25 69 18 140/87 100 03/16/23 19:15 66 18 142/74 H 100 03/16/23 19:05 68 18 141/79 H 100 03/16/23 18:55 98.4 F 81 18 149/74 H 98 03/16/23 19:10 98.1 F 81 16 149/74 H O2 Del Method 03/17/23 04:10 Room Air 03/16/23 20:00 Room Air 03/16/23 19:25 Room Air 03/16/23 19:15 Room Air 03/16/23 19:05 Room Air 03/16/23 18:55 Room Air 03/16/23 19:10 Intake and Output 03/16/23 03/17/23 03/17/23 23:59 07:59 15:59 Intake Total 800 / 800 Output Total 600 / 600 Balance 800 / 500 -600 / -600 Intake: Intake, Total IV Amount 800 / 800 Output: Output, Urine Amount 600 / 600 Laboratory Results - last 24 hr 03/16/23 08:44: POC Glucose 112 H 03/16/23 12:02: POC Glucose 153 H 03/16/23 13:38: POC Glucose 150 H 03/16/23 17:13: POC Glucose 131 H 03/16/23 18:13: Cord ABG pH 7.30 L 03/16/23 21:21: POC Glucose 171 H 03/17/23 02:17: POC Glucose 187 H 03/17/23 06:02: WBC 10.9 H, RBC 3.46 L, Hgb 10.3 L, Hct 32.0 L, MCV 92.5, MCH 29.8, MCHC 32.2, RDW 15.3, Plt Count 207, MPV 9.7, Neut % (Auto) 80.5 H, Lymph % (Auto) 12.7, [place] % (Auto) 6.2, Eos % (Auto) 0.5, Baso % (Auto) 0.1, Neut # (Auto) 8.7 H, Lymph # (Auto) 1.4, [place] # (Auto) 0.7, Eos # (Auto) 0.1, Baso # (Auto) 0.0 03/17/23 06:18: POC Glucose 120 H I & O for Labs for Last 24 Hours: Intake & Output 03/14/23 03/15/23 03/16/23 03/17/23 23:59 23:59 23:59 23:59 Intake Total 800 / 800 Output Total 300 / 300 600 / 600 Balance 500 / 500 -600 / -600 Weight 223 lb Head: Present atraumatic and normocephalic Neck: Present normal inspection and full ROM Respiratory: Present CTA bilaterally and normal respiratory effort Cardiac: Present Reg Rate and Rhythm GI: Present soft and normal bowel sounds; Absent distention, tenderness or guarding Comments:: Uterus firm and below umbilicus, pfannenstiel incision clean/dry/intact with metal marisela in place Rectal (female): Present deferred (female): Present deferred Extremities: Present normal inspection and full ROM; Absent edema or calf tenderness Neuro: Present alert, awake, oriented x 3 and moves all extremities Assessment and Plan *Assessment and plan (1) 38 weeks gestation of : Status: Acute Category: Medical Code(s): Z3A.38 - 38 weeks gestation of (2) S/P : Status: Acute Category: Surgical Code(s): Z98.891 - History of uterine scar from previous surgery (3) Type 2 diabetes mellitus affecting , antepartum: Status: Acute Category: Medical Code(s): O24.119 - Pre-existing type 2 diabetes mellitus, in , unspecified trimester (4) Maternal obesity affecting , antepartum: Status: Acute Qualifiers: Obesity type affecting : other obesity due to excess calories Qualified Code(s): O99.210 - Obesity complicating , unspecified trimester; E66.09 - Other obesity due to excess calories Category: Medical Code(s): O99.210 - Obesity complicating , unspecified trimester (5) Tobacco use affecting , antepartum: Status: Acute Category: Medical Code(s): O99.330 - Smoking (tobacco) complicating , unspecified trimester (6) Advanced maternal age in multigravida: St
[2023-03-17 11:51] LABS: POC Glucose,Bedside 159 (70-110)
[2023-03-17 17:22] LABS: POC Glucose,Bedside 84 (70-110)
[2023-03-17 20:28] LABS: POC Glucose,Bedside 77 (70-110)
[2023-03-17 20:48] VITALS: BP 105/63; PULSE 66; RESP 17; TEMP 36.4; O2SAT 98
[2023-03-18 03:38] VITALS: BP 112/56; PULSE 65; RESP 16; TEMP 36.5; O2SAT 98
[2023-03-18 06:52] LABS: POC Glucose,Bedside 127 (70-110)
--- NOTE | 2023-03-18 07:45 | P.PNANES_ITS ---
[facility] Anesthesia Record Part II Anesthesia Record Part II Discharge Time: 19:25 Destination: Obstetric PACU nurse assessment reviewed?: Yes Patient Condition:: Good Anesthesia Complications:: None Swallowing reflex intact?: Yes Airway Patency: Patent Cyanosis?: No Blood Pressure: 140/87 SaO2: 100 Respiratory Rate: 18 Pulse Rate: 69 Temperature: 98.4 F Mental Status: Alert & Oriented Pain level:: 0 Nausea and/or vomitting:: None Intake, IV Amount: 0 Hydration: Adequate
[2023-03-18 07:46] VITALS: BP 140/87; PULSE 69; RESP 18; TEMP 36.9; O2SAT 100
--- NOTE | 2023-03-18 09:28 | EXP.DC.SUM ---
General Admission date:: 03/15/23 Discharge date: 03/18/23 HPI HPI HPI: POD # 2 s/p PLTCS Rita is resting comfortably in bed. Pain controlled.Light lochia. Voiding without difficulty and passing flatus. Tolerating regular diet. She is formula feeding. Denies fever/chills, chest pain and shortness of breath. Denies headaches, dizziness/lightheadedness. No swelling. Ambulating well ad phan. Hospital Course Hospital Course Hospital Course: Mrs Rita Lizama is a 37 yo at 38w4d who presents to [facility] Labor and Delivery for scheduled induction of labor secondary to suboptimally controlled DM type 2 vs GDM on insulin and metformin. She has had good care. Baby is active. She underwent induction of labor with Cytotec followed by amniotomy and Pitocin. She progressed to complete, -1 station. tracing was category 2 all day with periods of minimal and moderate variability and variable and late decelerations. She pushed for almost 2 hours with no further descent of baby. Decision was made to proceed with primary for failure to progress and CPD. After pitocin was discontinued tracing was category 1. Discussed risks, benefits, alternatives, expectations and possible complications of surgery. Risks include but are not limited to bleeding; infection; damage to adjacent structures (possibly requiring further intervention and/or longer hospital stay); and VTE. All questions addressed and answered. Patient voiced understanding of risks and possible complications. Consent form signed. She underwent a primary on 03/16/23. She delivered a live female baby, Yen Romero, weighing 7 lb 7 oz, APGARs 8, 9. EBL 600 mL. She did well postoperatively. Pain controlled. Light lochia. Formula feeding. Voiding without difficulty and passing flatus. Tolerating regular diet. Vital signs stable, afebrile. Heart regular rate and rhythm. Lungs clear to auscultation. Abdomen soft, nontender. No lower extremity edema. Ambulating well ad phan. She was discharged home on POD #2 with instructions to follow-up in the office in 11 days for staple removal. Discussed instructions for removing Prevena wound dressing. Encouraged patient to follow up with PCP next week for glycemic control and possible medication adjustments/changes. Exam Data for Last 24 hours Vital signs and Labs for Last 24 Hours: Temp Pulse Resp BP Pulse Ox O2 Del Method 97.7 F 65 18 112/56 L 98 Room Air 03/18/23 03:38 03/18/23 03:38 03/18/23 07:46 03/18/23 03:38 03/18/23 03:38 03/18/23 03:38 Laboratory Results - last 24 hr 03/17/23 11:43: POC Glucose 159 H 03/17/23 17:15: POC Glucose 84 03/17/23 20:20: POC Glucose 77 03/18/23 06:45: POC Glucose 127 H I & O for Last 24 hours: Intake & Output 03/15/23 03/16/23 03/17/23 03/18/23 23:59 23:59 23:59 23:59 Intake Total 800 / 800 0 / 0 Output Total 300 / 300 600 / 600 Balance 500 / 500 -600 / -600 0 / 0 Weight 223 lb Constitutional Constitutional: no acute distress *Routine HEENT Exam Head: Present normocephalic and atraumatic Eye: Absent conjunctivae pink ENT: Present mucous membranes moist *Routine Neck Exam Neck: Present full ROM *Routine Respiratory Exam Respiratory: Present CTA bilaterally and normal respiratory effort *Routine Cardiovascular Exam Cardiovascular: Present RRR *Routine Abdominal Exam Abdominal: Present soft and normoactive bowel sounds; Absent tenderness or distended Comments: Prevena wound dressing in place *Routine Rectal Exam Patient deferred: visual exam *Routine Exam Patient deferred: external exam *Routine Extremities Exam Extremities: Present full ROM; Absent edema or calf tenderness *Routine Neurological Exam Neurological: Present alert, oriented X3 and moving all extremities Routine Psychiatric Exam Psychiatric: Present normal affect and cooperative Results Data Completed and Pending Labs on day of discharge: Labs from last 24 hours
== END 2023-03-18 13:00 | disposition home or self-care (01) | DRG 788 ==
PROVIDERS: Nurse Practitioner Obstetrics & Gynecology; Admitting Provider Obstetrics & Gynecology; PCP Family Medicine; Visit Provider Obstetrics & Gynecology
PROC: (CPT 59514; principal; 2023-03-16 17:30)
DX: O24.12 Pre-existing type 2 diabetes mellitus, in childbirth (principal); Z37.0 Single live birth; O99.214 Obesity complicating childbirth; Z3A.38 38 weeks gestation of pregnancy; O99.52 Diseases of the respiratory system complicating childbirth; O33.9 Maternal care for disproportion, unspecified; O99.334 Smoking (tobacco) complicating childbirth
CPT/HCPCS: 59514; 36415; 59025; 80048; 80305; 81001; 82800; 82962; 85025; 86850; 94761; 96374; C1758; C9290; G0283; J0595; J0690; J2405